=== PATIENT | female | born 1965 | race Caucasian/White ===

== ENCOUNTER → 2016-03-25 | Outpatient (CLI) | payer MEDICARE, MEDICAID | LOC: RAD 08:36 | PROVIDERS: ATTEND Surgery | DX: R10.32 Left lower quadrant pain (principal); K59.00 Constipation, unspecified | CPT/HCPCS: 74177; 82565 ==

== ENCOUNTER 2016-09-16 07:55 | Emergency (ER) | payer MEDICARE, MEDICAID ==
[2016-09-16 08:49] LABS: APPEARANCE,URINE CLEAR; BILIRUBIN,URINE NEGATIVE (NEGATIVE); GLUCOSE, URINE NEGATIVE (NEGATIVE); KETONES,URINE NEGATIVE (NEGATIVE); LEUKOCYTE ESTERASE,URINE NEGATIVE (NEGATIVE); NITRITE,URINE NEGATIVE (NEGATIVE); PROTEIN,URINE NEGATIVE (NEGATIVE); URINE SPECIFIC GRAVITY 1.013; UROBILINOGEN,URINE NEGATIVE mg/dL (<2.0)
[2016-09-16 09:12] LABS: ABSOLUTE EOSINOPHILS # (AUTO) 0.1 10^3/uL (0.0-0.6); ABSOLUTE LYMPHOCYTES (AUTO) 1.5 10^3/uL (0.5-4.7); ABSOLUTE MONOCYTES (AUTO) 0.3 10^3/uL (0.1-1.4); ABSOLUTE NEUT (AUTO) 1.9 10^3/uL (1.7-8.2); BASOPHILS % (AUTO) 1.2 % (0-2); EOSINOPHILS % (AUTO) 2.8 % (0-6); HEMATOCRIT 36.1 % (36.0-47.0); HEMOGLOBIN 11.6 g/dL (12.0-15.5); HGB HCT DIFFERENCE -1.3; LYMPHOCYTES % (AUTO) 39.9 % (13-45); MEAN CORPUSCULAR HGB CONC 32.1 g/dL (32.0-36.0); MEAN CORPUSCULAR VOLUME 81 fl (80-97); MONOCYTES % (AUTO) 7.2 % (3-13); RED BLOOD COUNT 4.44 10^6/uL (3.72-5.28); RED CELL DISTRIBUTION WIDTH 15.3 % (11.5-14.0); SEGMENTED NEUTROPHILS % (AUTO) 48.9 % (42-78); WHITE BLOOD COUNT 3.8 10^3/uL (4.0-10.5)
--- NOTE | 2016-09-16 09:21 | ER Document Report ---
ED General - General Chief Complaint: Abdominal Pain Stated Complaint: ABDOMINAL PAIN Time Seen by Provider: 09/16/16 08:27 Mode of Arrival: Ambulatory Information source: Patient Notes: 50-year-old female presents with complaints of one-week duration of pain in the umbilicus. Patient denies any fevers or chills admits to vomiting one time yesterday. Patient notes the pain has not radiated anywhere. Patient has a history of gastric bypass and gets constipated often TRAVEL OUTSIDE OF THE [place] IN LAST 30 DAYS: No - HPI Onset: Last week Onset/Duration: Persistent Quality of pain: Sharp Severity: Mild Pain Level: 1 Associated symptoms: Other Exacerbated by: Denies Relieved by: Denies Similar symptoms previously: Yes Recently seen / treated by doctor: Yes - Related Data Allergies/Adverse Reactions: ranitidine HCl [From Zantac] Allergy (Severe, Verified 09/16/16 08:03) TONGUE/LIP SWELLING sumatriptan [From Imitrex] Allergy (Severe, Verified 09/16/16 08:03) TONGUE SWELLING sumatriptan succinate [From Imitrex] Allergy (Severe, Verified 09/16/16 08:03) TONGUE SWELLING sulfamethoxazole [From Bactrim] Allergy (Intermediate, Verified 09/16/16 08:03) RASH trimethoprim [From Bactrim] Allergy (Intermediate, Verified 09/16/16 08:03) RASH vancomycin Allergy (Intermediate, Verified 09/16/16 08:03) RASH Tetracyclines Adverse Reaction (Mild, Verified 09/16/16 08:03) RASH Past Medical History - Social History Smoking Status: Never Smoker Cigarette use (# per day): No Chew tobacco use (# tins/day): No Smoking Education Provided: No Family History: Reviewed & Not Pertinent Patient has suicidal ideation: No Patient has homicidal ideation: No - Past Medical History Cardiac Medical History: Denies: Hx Coronary Artery Disease, Hx Heart Attack, Hx Hypertension Pulmonary Medical History: Reports: Hx Bronchitis Denies: Hx Asthma, Hx COPD, Hx Pneumonia Neurological Medical History: Denies: Hx Cerebrovascular Accident, Hx Seizures Endocrine Medical History: Reports: Hx Diabetes Mellitus Type 2 Renal/ Medical History: Denies: Hx Peritoneal Dialysis Musculoskeltal Medical History: Reports Hx Arthritis - osteo, Reports Hx Fibromyalgia Psychiatric Medical History: Reports: Hx Bipolar Disorder Past Surgical History: Reports: Hx Orthopedic Surgery - neck, back, shoulder - Immunizations Hx Diphtheria, Pertussis, Tetanus Vaccination: Yes Review of Systems - Review of Systems Notes: REVIEW OF SYSTEMS: CONSTITUTIONAL : Denies fever, chills, or sweats. Denies recent illness. EENT: Denies eye, ear, throat, or mouth pain or symptoms. Denies nasal or sinus congestion or discharge. Denies throat, tongue, or mouth swelling or difficulty swallowing. CARDIOVASCULAR: Denies chest pain. Denies palpitations or racing or irregular heart beat. Denies ankle edema. RESPIRATORY: Denies cough, cold, or chest congestion. Denies shortness of breath, difficulty breathing, or wheezing. GASTROINTESTINAL: Pain in hte umbilicus GENITOURINARY: Denies difficulty urinating, painful urination, burning, frequency, blood in urine, or discharge. FEMALE GENITOURINARY: Denies vaginal bleeding, heavy or abnormal periods, irregular periods. Denies vaginal discharge or odor. MUSCULOSKELETAL: Denies back or neck pain or stiffness. Denies joint pain or swelling. SKIN: Denies rash, lesions or sores. HEMATOLOGIC : Denies easy bruising or bleeding. LYMPHATIC: Denies swollen, enlarged glands. NEUROLOGICAL: Denies confusion or altered mental status. Denies passing out or loss of consciousness. Denies dizziness or lightheadedness. Denies headache. Denies weakness or paralysis or loss of use of either side. Denies problems with gait or speech. Denies sensory loss, numbness, or tingling. Denies seizures. PSYCHIATRIC: Denies anxiety or stress. Denies depression, suicidal ideation, or homicidal ideation. ALL OTHER SYSTEMS REVIEWED AND NEGATIVE. PHYSICAL EXAMINATION: GENERAL: Well-appearing, well-nourished and in no acute distress. HEAD: Atraumatic, normocephalic. EYES: Pupils equal round and reactive to light, extraocular movements intact, conjunctiva are normal. ENT: Nares patent, oropharynx clear without exudates. Moist mucous membranes. NECK: Normal range of motion, supple without lymphadenopathy LUNGS: Breath sounds clear to auscultation bilaterally and equal. No wheezes rales or rhonchi. HEART: Regular rate and rhythm without murmurs ABDOMEN: Soft, nontender, nondistended abdomen. No guarding, no rebound. No masses appreciated. Female : deferred Musculoskeletal: Normal range of motion, no pitting or edema. No cyanosis. NEUROLOGICAL: Cranial nerves grossly intact. Normal speech, normal gait. Normal sensory, motor exams PSYCH: Normal mood, normal affect. SKIN: Warm, Dry, normal turgor, no rashes or lesions noted. Dictation was performed using [employer] voice recognition software Physical Exam - Vital signs Vitals: Temp Pulse Resp BP Pulse Ox 97.7 F 76 16 112/62 100 09/16/16 08:00 09/16/16 08:00 09/16/16 08:00 09/16/16 08:00 09/16/16 08:00 Course - Re-evaluation Re-evalutation: 09/16/16 09:27 Patient overall looks well, I have low suspicion for appendicitis however lab work is pending at this 09/16/16 11:[address] noted no significant abnormality except for fecal matter, patient admits that she is always constipated, I will start her on medications otherwise she is stable for discharge After performing a Medical Screening Examination, I estimate there is LOW risk for ACUTE APPENDICITIS, BOWEL OBSTRUCTION, ACUTE CHOLECYSTITIS, PERFORATED DIVERTICULITIS, INCARCERATED HERNIA, PANCREATITIS, PELVIC INFLAMMATORY DISEASE, PERFORATED ULCER, ECTOPIC , or TUBO-OVARIAN ABSCESS, thus I consider the discharge disposition reasonable. Also, there is no evidence or peritonitis , sepsis, or toxicity. I have reevaluated this patient multiple times and no significant life threatening changes are noted. The patient and I have discussed the diagnosis and risks, and we agree with discharging home with close follow-up with the understanding that symptoms and presentations can change. We also discussed returning to the Emergency Department immediately if new or worsening symptoms occur. We have discussed the symptoms which are most concerning (e.g., bloody stool, fever, changing or worsening pain, vomiting) that necessitate immediate return. - Vital Signs Vital signs: Temp Pulse Resp BP Pulse Ox 97.7 F 76 16 112/62 100 09/16/16 08:00 09/16/16 08:00 09/16/16 08:00 09/16/16 08:00 09/16/16 08:00 - Laboratory Result Diagrams: 09/16/16 08:59 09/16/16 08:59 Laboratory results interpreted by me: 09/16/16 09/16/16 08:59 08:59 WBC 3.8 L Hgb 11.6 L MCH 26.0 L RDW 15.3 H Chloride 108 H - Diagnostic Test Radiology reviewed: Image reviewed, Reports reviewed - Fecal matter noted Discharge - Discharge Clinical Impression: Constipation Qualifiers: Constipation type: unspecified constipation type Qualified Code(s): K59.00 - Constipation, unspecified Abdominal pain Qualifiers: Abdominal location: generalized Qualified Code(s): R10.84 - Generalized abdominal pain Condition: Stable Disposition: HOME, SELF-CARE Instructions: Abdominal Pain ([facility]) Additional Instructions: Follow up with your physician tomorrow for further care or return to the ED IMMEDIATELY if symptoms worsen or new concerns occur. If you cannot afford to follow up with your primary care physician a list of low cost clinics have been provided at the end of your discharge papers as well. Prescriptions: Dicyclomine HCl [Bentyl 20 mg Tablet] 20 mg PO QID #40 tablet Metoclopramide HCl [Reglan 10 mg Tablet] 1 - 2 tab PO ASDIR PRN #25 tablet PRN Reason: Peg 3350/Na Sulf,Bicarb,Cl/KCl [Golytely Solution 4000 ml] 4,000 ml PO DAILY #1 bottle
[2016-09-16 09:39] LABS: ALANINE AMINOTRANSFERASE 25 U/L (9-52); ALBUMIN 3.9 g/dL (3.5-5.0); ALKALINE PHOSPHATASE 71 U/L (38-126); ANION GAP 8 (5-19); ASPARTATE AMINO TRANSFERASE 29 U/L (14-36); BILIRUBIN,DIRECT 0.3 mg/dL (0.0-0.4); BILIRUBIN,TOTAL 0.4 mg/dL (0.2-1.3); BLOOD UREA NITROGEN 16 mg/dL (7-20); CALCIUM 8.8 mg/dL (8.4-10.2); CARBON DIOXIDE 26 mmol/L (22-30); CHLORIDE 108 mmol/L (98-107); CREATININE RESULT 0.81 mg/dL (0.52-1.25); GLUCOSE 83 mg/dL (75-110); LIPASE 74.1 U/L (23-300); POTASSIUM 4.1 mmol/L (3.6-5.0); SODIUM 142.1 mmol/L (137-145)
--- NOTE | 2016-09-16 11:32 | RADIOLOGY REPORT (SQ) ---
EXAM DESCRIPTION: CT ABD/PELVIS WITH IV ONLY COMPLETED DATE/TIME: 09/16/2016 10:11 am REASON FOR STUDY: RLQ pain COMPARISON: 03/25/2016 TECHNIQUE: CT scan of the abdomen and pelvis performed using helical scanning technique with dynamic intravenous contrast injection. No oral contrast. Images reviewed with lung, soft tissue, and bone windows. Reconstructed coronal and sagittal MPR images reviewed. Delayed images for evaluation of the urinary system also acquired. All images stored on PACS. All CT scanners at this facility use dose modulation, iterative reconstruction, and/or weight based d osing when appropriate to reduce radiation dose to as low as reasonably achievable (ALARA). [facility]: Dose Right [facility]: CareDose [facility]: Dose Right [facility]: Teradose 4D [facility]: Maxta CONTRAST TYPE AND DOSE: contrast/concentration: Isovue 370.00 mg/ml; Total Contrast Delivered: 79.0 ml; Total Saline Delivered: 68.0 ml 79 cc Isovue intravenously RENAL FUNCTION: Creatinine 0.81 RADIATION DOSE: Up-to-date CT equipment and radiation dose reduction techniques were employed. CTDIv ol: 6.5 - 8.9 mGy. DLP: 851 mGy-cm.. LIMITATIONS: None. FINDINGS: LOWER CHEST: No significant findings. No nodules or infiltrates. LIVER: Normal size. No masses. No dilated ducts. SPLEEN: Normal size. No focal lesions. PANCREAS: No masses. No significant calcifications. No adjacent inflammation or peripancreatic fluid collections. Pancreatic duct not dilated. GALLBLADDER: Surgical clips, post cholecystectomy. ADRENAL GLANDS: No significant masses or asymmetry. RIGHT KIDNEY AND URETER: No solid masses. No significant calcification. No hydronephrosis or hydroure ter. LEFT KIDNEY AND URETER: No solid masses. No significant calcification. No hydronephrosis or hydrouret er. AORTA AND VESSELS: No AAA. RETROPERITONEUM: No retroperitoneal adenopathy, hemorrhage or masses. BOWEL AND PERITONEAL CAVITY: Operative change of the stomach. Increase air noted of the colon. Nono bstructive appearance. Mild small bowel distention. APPENDIX: Limited visualization unremarkable PELVIS: No mass or free fluid. Normal bladder. ABDOMINAL WALL: No masses. No hernias. BONES: Operative change L4-5. OTHER: No other significant finding. IMPRESSION: Operative changes, post gastric bypass, cholecystectomy, and hysterectomy. Nonobstructive bowel pattern, with increase air and fecal material of the colon. TECHNICAL DOCUMENTATION: JOB ID: [id number] Quality ID # [id number]: Final reports with documentation of one or more dose reduction techniques (e.g., Au tomated exposure control, adjustment of the mA and/or kV according to patient size, use of iterative reconstruction technique) 2010 [employer]- All Rights Reserved
[2016-09-16] MEDS ORDERED: DICYCLOMINE HCL INJ 20 MG/2 ML AMPULE IM ONE (11:57)
[2016-09-16 12:14] VITALS: BP 110/60
== END 2016-09-16 12:15 | disposition home or self-care (01) ==
LOC: ER 07:55
DX: K59.00 Constipation, unspecified (principal); R10.84 Generalized abdominal pain; R11.10 Vomiting, unspecified; E11.9 Type 2 diabetes mellitus without complications; Z98.84 Bariatric surgery status; Z88.3 Allergy status to other anti-infective agents
CPT/HCPCS: 99284; 96372; 36415; 83690; 85025; 80053; 81001; 74177; J0500

== ENCOUNTER 2016-11-17 09:26 | Emergency (ER) | payer MEDICARE, MEDICAID ==
[2016-11-17] MEDS ORDERED: ACETAMINOPHEN 325 MG TABLET PO ONE (10:04)
--- NOTE | 2016-11-17 10:06 | ER Document Report ---
HPI - HPI Patient complains to provider of: Right forearm injury Onset: Other - 1 month ago, worse since yesterday Onset/Duration: Persistent Quality of pain: Achy Pain Level: 4 Context: Patient states that she fell 1 month ago after having a syncopal episode injuring her right arm. Patient is complaining of persistent pain since the fall. Patient states that yesterday her dog jumped up on her arm causing increased pain. Associated Symptoms: Other - Right forearm tenderness Exacerbated by: Movement Relieved by: Denies Similar symptoms previously: No Recently seen / treated by doctor: No - ROS ROS below otherwise negative: Yes Systems Reviewed and Negative: Yes All other systems reviewed and negative - CONSTITUTIONAL Constitutional: DENIES: Fever - NEURO Neurology: DENIES: Weakness - CARDIOVASCULAR Cardiovascular: DENIES: Chest pain - MUSCULOSKELETAL Musculoskeletal: REPORTS: Extremity pain - DERM Skin Color: Ecchymosis Skin Problems: None Past Medical History - General Information source: Patient - Social History Smoking Status: Never Smoker Chew tobacco use (# tins/day): No Frequency of alcohol use: None Drug Abuse: None Occupation: None Family History: Reviewed & Not Pertinent Patient has suicidal ideation: No Patient has homicidal ideation: No - Past Medical History Cardiac Medical History: Reports: Other - Syncope Denies: Hx Coronary Artery Disease, Hx Heart Attack, Hx Hypertension Pulmonary Medical History: Reports: Hx Bronchitis Denies: Hx Asthma, Hx COPD, Hx Pneumonia Neurological Medical History: Denies: Hx Cerebrovascular Accident, Hx Seizures Endocrine Medical History: Reports: Hx Diabetes Mellitus Type 2 Renal/ Medical History: Denies: Hx Peritoneal Dialysis Musculoskeltal Medical History: Reports Hx Arthritis - osteo, Reports Hx Fibromyalgia Psychiatric Medical History: Reports: Hx Bipolar Disorder Past Surgical History: Reports: Hx Abdominal Surgery - gastric bypass, Hx Cholecystectomy, Hx Orthopedic Surgery - neck, back, shoulder - Immunizations Hx Diphtheria, Pertussis, Tetanus Vaccination: Yes Vertical Provider Document - CONSTITUTIONAL Agree With Documented VS: Yes Exam Limitations: No Limitations General Appearance: WD/WN, No Apparent Distress - INFECTION CONTROL TRAVEL OUTSIDE OF THE [place] IN LAST 30 DAYS: No - HEENT HEENT: Atraumatic, Normocephalic - NECK Neck: Normal Inspection, Supple - RESPIRATORY Respiratory: No Respiratory Distress O2 Sat by Pulse Oximetry: 99 - CARDIOVASCULAR Pulses: Normal: Radial - MUSCULOSKELETAL/EXTREMETIES Musculoskeletal/Extremeties: MAEW, Tender - Proximal right forearm tenderness with overlying area of ecchymosis, no deformity, no joint tenderness, No Edema, Eccymosis - NEURO Level of Consciousness: Awake, Alert, Appropriate Motor/Sensory: No Motor Deficit - DERM Integumentary: Warm, Dry, No Rash Course - Vital Signs Vital signs: Temp Pulse Resp BP Pulse Ox 97.8 F 76 14 113/73 99 11/17/16 09:11/17/16 09:11/17/16 09:11/17/16 09:11/17/16 09:29 - Diagnostic Test Radiology reviewed: Pending, Image reviewed Discharge - Discharge Clinical Impression: Right forearm pain Arm contusion Qualifiers: Encounter type: initial encounter Laterality: right Qualified Code(s): S40.021A - Contusion of right upper arm, initial encounter Condition: Stable Disposition: HOME, SELF-CARE Instructions: Anti-Inflammatory Medication ([facility]), Contusion ([facility]), Ice & Elevation ([facility]) Additional Instructions: Return immediately for any new or worsening symptoms Followup with your primary care provider, call tomorrow to make a followup appointment You may use topical lidocaine patches [id number] as directed Prescriptions: Naproxen [Naprosyn 250 Nmg Tablet] 1 tab PO BID #14 tablet Referrals: [facility] ([facility]) [Provider Group] - Follow up tomorrow
[2016-11-17] MEDS ORDERED: LIDOCAINE 5% (700 MG) TRANSDERMAL ADH..PATCH TP ONE (10:47)
--- NOTE | 2016-11-17 11:03 | RADIOLOGY REPORT (SQ) ---
EXAM DESCRIPTION: FOREARM RIGHT COMPLETED DATE/TIME: 11/17/2016 10:30 am REASON FOR STUDY: proximal FA pain, hx fall, dog jumped on arm COMPARISON: None. NUMBER OF VIEWS: Two views. TECHNIQUE: Two radiographic images acquired of the right forearm, including elbow and wrist in at le ast one projection. LIMITATIONS: None. FINDINGS: MINERALIZATION: Normal. BONES: No acute fracture. No worrisome bone lesions. SOFT TISSUES: No obvious swelling or foreign body. OTHER: No other significant finding. IMPRESSION: NEGATIVE STUDY OF THE RIGHT FOREARM. NO RADIOGRAPHIC EVIDENCE OF ACUTE INJURY. TECHNICAL DOCUMENTATION: JOB ID: [id number] [employer]- All Rights Reserved
[2016-11-17 11:09] VITALS: BP 121/69
== END 2016-11-17 11:09 | disposition home or self-care (01) ==
LOC: ER 09:26
DX: S40.021A Contusion of right upper arm, initial encounter (principal); M79.631 Pain in right forearm; W22.8XXA Striking against or struck by other objects, initial encounter
CPT/HCPCS: 99283; 36415; 82306; 82728; 83540; 83550; 73090; A9270

== ENCOUNTER 2017-02-20 08:58 | Emergency (ER) | payer MEDICARE, MEDICAID ==
--- NOTE | 2017-02-20 09:38 | ER Document Report ---
ED General - General Chief Complaint: Head Injury Stated Complaint: POSSIBLE SYNCOPAL EPISODE HEAD INJURY Time Seen by Provider: 02/20/17 09:25 Information source: Patient Notes: 51-year-old female who presents today with a syncopal witnessed episode 2 days ago. She hit her head on the concrete when she fell. She also caught herself with her right arm on a coffee table. Patient states initially she was having some blurry vision. She denies any blurry vision at this time. She denies being on any blood thinning medications. She denies any seizure activity. Patient states since her gastric bypass surgery 3 years ago she has multiple syncopal episodes. She states up to 3 times per month. She states that she has no incontinence and these episodes that have been witnessed have shown no seizure activity. She does see a cyber threat analyst and had a Holter monitor and was told that there were no obvious dysrhythmias. She was put on a blood pressure medication 6 months ago to deal with these issues. Patient states before this current episode she felt "hot and flushed" and denies any chest pain or shortness of breath. TRAVEL OUTSIDE OF THE [place] IN LAST 30 DAYS: No - HPI Onset: Other - See above Onset/Duration: Sudden Quality of pain: Achy Severity: Mild Pain Level: 1 Associated symptoms: Other - See above Exacerbated by: Denies Relieved by: Denies Similar symptoms previously: Yes Recently seen / treated by doctor: Yes - Related Data Allergies/Adverse Reactions: ranitidine HCl [From Zantac] Allergy (Severe, Verified 02/20/17 08:59) TONGUE/LIP SWELLING sumatriptan [From Imitrex] Allergy (Severe, Verified 02/20/17 08:59) TONGUE SWELLING sumatriptan succinate [From Imitrex] Allergy (Severe, Verified 02/20/17 08:59) TONGUE SWELLING sulfamethoxazole [From Bactrim] Allergy (Intermediate, Verified 02/20/17 08:59) RASH trimethoprim [From Bactrim] Allergy (Intermediate, Verified 02/20/17 08:59) RASH vancomycin Allergy (Intermediate, Verified 02/20/17 08:59) RASH Tetracyclines Adverse Reaction (Mild, Verified 02/20/17 08:59) RASH Past Medical History - General Information source: Patient - Social History Smoking Status: Unknown if Ever Smoked Cigarette use (# per day): No Chew tobacco use (# tins/day): No Smoking Education Provided: No Frequency of alcohol use: None Drug Abuse: None Family History: Reviewed & Not Pertinent - Past Medical History Cardiac Medical History: Denies: Hx Coronary Artery Disease, Hx Heart Attack, Hx Hypertension Pulmonary Medical History: Reports: Hx Bronchitis Denies: Hx Asthma, Hx COPD, Hx Pneumonia Neurological Medical History: Denies: Hx Cerebrovascular Accident, Hx Seizures Endocrine Medical History: Reports: Hx Diabetes Mellitus Type 2 Renal/ Medical History: Denies: Hx Peritoneal Dialysis Musculoskeltal Medical History: Reports Hx Arthritis - osteo, Reports Hx Fibromyalgia Psychiatric Medical History: Reports: Hx Bipolar Disorder Past Surgical History: Reports: Hx Abdominal Surgery - gastric bypass, Hx Cholecystectomy, Hx Orthopedic Surgery - neck, back, shoulder - Immunizations Hx Diphtheria, Pertussis, Tetanus Vaccination: Yes Review of Systems - Review of Systems Constitutional: denies: Fever EENT: denies: Eye discharge, Double vision, Ear pain, Ear discharge, Nose pain, Nose discharge Cardiovascular: denies: Chest pain, Palpitations, Dyspnea Respiratory: denies: Short of breath Gastrointestinal: denies: Vomiting Genitourinary: denies: Dysuria Musculoskeletal: denies: Leg swelling Skin: Other - no hives. denies: Rash Neurological/Psychological: Other - no slurred speech -: Yes All other systems reviewed and negative Physical Exam - Vital signs Vitals: Temp Pulse Resp BP Pulse Ox 98.2 F 64 16 122/61 100 02/20/17 09:06 02/20/17 09:06 02/20/17 09:06 02/20/17 09:06 02/20/17 09:06 Notes: Reviewed vital signs and nursing note as charted by RN. CONSTITUTIONAL: Alert and oriented and responds appropriately to questions. Well -appearing; well-nourished HEAD: Normocephalic; atraumatic EYES: PERRL; full extraocular range of motion ENT: Normal nose; no rhinorrhea; moist mucous membranes; pharynx without lesions noted NECK: Supple without meningismus; no carotid bruits present; non-tender; no cervical lymphadenopathy, no masses CARD: Regular rate and rhythm; no murmurs RESP: Normal chest excursion without splinting or tachypnea; breath sounds clear and equal bilaterally ABD/GI: Normal bowel sounds; non-distended; soft, non-tender BACK: The back appears normal and is non-tender to palpation EXT: Normal ROM in all joints; non-tender to palpation; no cyanosis, no effusions, no edema SKIN: No acute lesions noted NEURO: Moves all extremities equally; Motor and sensory function intact PSYCH: The patient's mood and manner are appropriate. Grooming and personal hygiene are appropriate. Course - Re-evaluation Re-evalutation: 02/20/17 09:36 Given the above history and physical examination, we will place the patient on the monitor, obtain orthostatics and EKG, as well as a CT scan of the head and cervical spine. Patient has full range of motion of the right arm with no obvious bruising or deformity noted. Patient currently denies any blurry vision. Patient has had no flashes of lights or focal segment vision loss. Given the above history and physical examination, I do believe pulmonary embolism and aortic dissection to be extremely unlikely. Patient denies any blurry or double vision at this time. Patient's cranial nerves II through XII are intact. She has 5 out of 5 bilateral upper and lower extremity strength with sensation intact light touch. 02/20/17 10:30 Heart rate 56, normal sinus rhythm, right bundle branch block, no obvious ST elevation or depression. No old EKG available at this time. 02/20/17 11:39 Orthostatics appear unremarkable. Visual acuity shows right eye vision 20/30. Patient still denies any blurry vision at this time. Labs as recorded. CAT scan of the head and cervical spine shows no acute abnormalities. 02/20/17 13:06 Troponin as recorded. Patient has not had any chest pain. Patient's episode was on Monday. Orthostatics unremarkable. Patient denies any pain at this time. Patient will be discharged home at this time with strict return precautions. - Vital Signs Vital signs: Temp Pulse Resp BP Pulse Ox 98.2 F 55 L 16 119/69 100 02/20/17 09:06 02/20/17 10:05 02/20/17 09:06 02/20/17 10:05 02/20/17 09:06 - Laboratory Result Diagrams: 02/20/17 09:55 02/20/17 11:07 Laboratory results interpreted by me: 02/20/17 02/20/17 09:55 11:07 Hgb 11.4 L Hct 34.0 L RDW 15.1 H Sodium 146.3 H Chloride 109 H Discharge - Discharge Clinical Impression: Syncope Qualifiers: Syncope type: unspecified Qualified Code(s): R55 - Syncope and collapse Condition: Good Disposition: HOME, SELF-CARE Additional Instructions: Please make sure that you follow-up with your primary care physician and cyber threat analyst. Please come back immediately with any chest pain, weakness or numbness, return of blurry vision, or any other acute problems.
--- NOTE | 2017-02-20 09:51 | RADIOLOGY REPORT (SQ) ---
EXAM DESCRIPTION: CT HEAD WITHOUT COMPLETED DATE/TIME: 02/20/2017 9:43 am REASON FOR STUDY: 6, fall COMPARISON: None. TECHNIQUE: Axial images acquired through the brain without intravenous contrast. Images reviewed wi th bone, brain and subdural windows. Images stored on PACS. All CT scanners at this facility use dose modulation, iterative reconstruction, and/or weight based d osing when appropriate to reduce radiation dose to as low as reasonably achievable (ALARA). [facility]: Dose Right [facility]: CareDose [facility]: Dose Right [facility]: Teradose 4D [facility]: [employer] RADIATION DOSE: 64.61 mGy. LIMITATIONS: None. FINDINGS: VENTRICLES: Normal size and contour. CEREBRUM: No masses. No hemorrhage. No midline shift. No evidence for acute infarction. Normal gra y/white matter differentiation. No areas of low density in the white matter. CEREBELLUM: No masses. No hemorrhage. No alteration of density. No evidence for acute infarction. EXTRAAXIAL SPACES: No fluid collections. No masses. ORBITS AND GLOBE: No intra- or extraconal masses. Normal contour of globe without masses. CALVARIUM: No fracture. PARANASAL SINUSES: No fluid or mucosal thickening. SOFT TISSUES: No mass or hematoma. OTHER: No other significant finding. IMPRESSION: NORMAL BRAIN CT WITHOUT CONTRAST. EVIDENCE OF ACUTE STROKE: NO. COMMENT: Quality ID # [id number]: Final reports with documentation of one or more dose reduction techniques (e.g., Automated exposure control, adjustment of the mA and/or kV according to patient size, use of iterative reconstruction technique) TECHNICAL DOCUMENTATION: JOB ID: [id number] [employer]- All Rights Reserved
--- NOTE | 2017-02-20 09:54 | RADIOLOGY REPORT (SQ) ---
EXAM DESCRIPTION: CT CERVICAL SPINE WITHOUT COMPLETED DATE/TIME: 02/20/2017 9:43 am REASON FOR STUDY: 7, fall COMPARISON: None. TECHNIQUE: Axial images acquired through the cervical spine without intravenous contrast. Images re viewed with lung, soft tissue and bone windows. Reconstructed coronal and sagittal MPR images review ed. Images stored on PACS. All CT scanners at this facility use dose modulation, iterative reconstruction, and/or weight based d osing when appropriate to reduce radiation dose to as low as reasonably achievable (ALARA). [facility]: Dose Right [facility]: CareDose [facility]: Dose Right [facility]: Teradose 4D [facility]: Indelsul RADIATION DOSE: 19.53 mGy. LIMITATIONS: None. FINDINGS: ALIGNMENT: Reversal of lordotic curve. MINERALIZATION: Normal. VERTEBRAL BODIES: No fractures or dislocation. DISCS: Multilevel disc space narrowing with osteophytes. FACETS, LATERAL MASSES, POSTERIOR ELEMENTS: Facet arthropathy. No fractures. No dislocation. No ac yuhaaviatam findings. HARDWARE: Anterior fusion C4-5 and C5-6. VISUALIZED RIBS: No fractures. LUNG APICES AND SOFT TISSUES: No significant or acute findings. OTHER: No other significant finding. IMPRESSION: No acute findings. TECHNICAL DOCUMENTATION: JOB ID: [id number] Quality ID # [id number]: Final reports with documentation of one or more dose reduction techniques (e.g., Au tomated exposure control, adjustment of the mA and/or kV according to patient size, use of iterative reconstruction technique) 2010 [employer]- All Rights Reserved
[2017-02-20 10:10] LABS: ABSOLUTE BASOPHILS # (AUTO) 0.1 10^3/uL (0.0-0.2); ABSOLUTE EOSINOPHILS # (AUTO) 0.1 10^3/uL (0.0-0.6); ABSOLUTE LYMPHOCYTES (AUTO) 1.6 10^3/uL (0.5-4.7); ABSOLUTE MONOCYTES (AUTO) 0.4 10^3/uL (0.1-1.4); ABSOLUTE NEUT (AUTO) 2.3 10^3/uL (1.7-8.2); BASOPHILS % (AUTO) 1.4 % (0-2); EOSINOPHILS % (AUTO) 2.4 % (0-6); HEMOGLOBIN 11.4 g/dL (12.0-15.5); HGB HCT DIFFERENCE 0.2; LYMPHOCYTES % (AUTO) 35.1 % (13-45); MEAN CORPUSCULAR HGB CONC 33.6 g/dL (32.0-36.0); MEAN CORPUSCULAR VOLUME 80 fl (80-97); MONOCYTES % (AUTO) 8.8 % (3-13); RED BLOOD COUNT 4.23 10^6/uL (3.72-5.28); RED CELL DISTRIBUTION WIDTH 15.1 % (11.5-14.0); SEGMENTED NEUTROPHILS % (AUTO) 52.3 % (42-78); WHITE BLOOD COUNT 4.4 10^3/uL (4.0-10.5)
[2017-02-20] MEDS ORDERED: ACETAMINOPHEN 325 MG TABLET PO ONE (11:02)
[2017-02-20 12:33] LABS: ANION GAP 10 (5-19); BLOOD UREA NITROGEN 18 mg/dL (7-20); CALCIUM 9.2 mg/dL (8.4-10.2); CARBON DIOXIDE 27 mmol/L (22-30); CHLORIDE 109 mmol/L (98-107); CREATININE RESULT 0.79 mg/dL (0.52-1.25); GLUCOSE 90 mg/dL (75-110); POTASSIUM 4.1 mmol/L (3.6-5.0); SODIUM 146.3 mmol/L (137-145)
--- NOTE | 2017-02-20 13:33 | EKG REPORT ---
SEVERITY:- ABNORMAL ECG - SINUS RHYTHM RIGHT BUNDLE BRANCH BLOCK : Confirmed by: Marina Neely 20-Feb-2017 13:33:11
[2017-02-20 14:03] VITALS: BP 118/74
== END 2017-02-20 14:03 | disposition home or self-care (01) ==
LOC: ER 08:58
DX: R55 Syncope and collapse (principal); W18.30XA Fall on same level, unspecified, initial encounter; E11.9 Type 2 diabetes mellitus without complications; Z98.84 Bariatric surgery status; Z88.3 Allergy status to other anti-infective agents; Z90.49 Acquired absence of other specified parts of digestive tract
CPT/HCPCS: 93005; 99285; 36415; 85025; 80048; 84484; 70450; 72125; 93010; A9270

== ENCOUNTER 2017-04-11 11:41 | Emergency (ER) | payer MEDICARE, MEDICAID ==
[2017-04-11] MEDS ORDERED: ONDANSETRON HCL INJ/PF 4 MG/2 ML SDV IV ONE (13:51)
[2017-04-11] MEDS ORDERED: NORMAL SALINE 1000 ML 1,000 ML IV ONE (13:51)
--- NOTE | 2017-04-11 13:59 | ER Document Report ---
ED Medical Screen (RME) - General Chief Complaint: Flu Symptoms Stated Complaint: BODY ACHES Time Seen by Provider: 04/11/17 13:44 Mode of Arrival: Ambulatory Information source: Patient Notes: Patient is a 51 year old female presenting to the emergency department complaining of flu like symptoms onset 4 days ago. PAtient states she has been dry heaving and has had multiple episodes of diarrhea since. Patient states she is unable to vomit due to having Gastric Bypass many years ago. Patient also complains of decreased foul smelling urination, chills, and headaches. Patient denies taking any antibiotics or sore throat. I have greeted and performed a rapid initial assessment of this patient. A comprehensive ED assessment and evaluation of the patient, analysis of test results and completion of the medical decision making process will be conducted by additional ED providers. TRAVEL OUTSIDE OF THE [place] IN LAST 30 DAYS: No - Related Data Allergies/Adverse Reactions: ranitidine HCl [From Zantac] Allergy (Severe, Verified 02/20/17 08:59) TONGUE/LIP SWELLING sumatriptan [From Imitrex] Allergy (Severe, Verified 02/20/17 08:59) TONGUE SWELLING sumatriptan succinate [From Imitrex] Allergy (Severe, Verified 02/20/17 08:59) TONGUE SWELLING sulfamethoxazole [From Bactrim] Allergy (Intermediate, Verified 02/20/17 08:59) RASH trimethoprim [From Bactrim] Allergy (Intermediate, Verified 02/20/17 08:59) RASH vancomycin Allergy (Intermediate, Verified 02/20/17 08:59) RASH amoxicillin [From Augmentin] Allergy (Verified 04/11/17 11:42) clavulanic acid [From Augmentin] Allergy (Verified 04/11/17 11:42) Tetracyclines Adverse Reaction (Mild, Verified 02/20/17 08:59) RASH Past Medical History - Social History Chew tobacco use (# tins/day): No Frequency of alcohol use: None Drug Abuse: None - Past Medical History Cardiac Medical History: Denies: Hx Coronary Artery Disease, Hx Heart Attack, Hx Hypertension Pulmonary Medical History: Reports: Hx Bronchitis Denies: Hx Asthma, Hx COPD, Hx Pneumonia Neurological Medical History: Denies: Hx Cerebrovascular Accident, Hx Seizures Endocrine Medical History: Reports: Hx Diabetes Mellitus Type 2 Renal/ Medical History: Denies: Hx Peritoneal Dialysis Musculoskeltal Medical History: Reports Hx Arthritis - osteo, Reports Hx Fibromyalgia Psychiatric Medical History: Reports: Hx Bipolar Disorder Past Surgical History: Reports: Hx Abdominal Surgery - gastric bypass, Hx Cholecystectomy, Hx Orthopedic Surgery - neck, back, shoulder - Immunizations Hx Diphtheria, Pertussis, Tetanus Vaccination: Yes Physical Exam - Vital signs Vitals: Temp Pulse Resp BP Pulse Ox 98.7 F 63 20 123/62 100 04/11/17 11:45 04/11/17 11:45 04/11/17 11:45 04/11/17 11:45 04/11/17 11:45 - Notes Notes: GENERAL: Alert, interacts well. No acute distress. HEAD: Normocephalic, atraumatic. EYES: Pupils equal, round, and reactive to light. Extraocular movements intact. ENT: Oral mucosa moist, tongue midline. NECK: Full range of motion. Supple. Trachea midline. LUNGS: Clear to auscultation bilaterally, no wheezes, rales, or rhonchi. No respiratory distress. HEART: Regular rate and rhythm. No murmurs, gallops, or rubs. ABDOMEN: Soft, non-tender. Non-distended. Bowel sounds present in all 4 quadrants. EXTREMITIES: Moves all 4 extremities spontaneously. NEUROLOGICAL: Alert and oriented x3. Normal speech. PSYCH: Normal affect, normal mood. SKIN: Warm, dry, normal turgor. No rashes or lesions noted. Course - Vital Signs Vital signs: Temp Pulse Resp BP Pulse Ox 98.7 F 63 20 123/62 100 04/11/17 11:45 04/11/17 11:45 04/11/17 11:45 04/11/17 11:45 04/11/17 11:45 Scribe Documentation - Scribe Written by Raminibe:: Boni Greer, 04/11/2017 14:00 acting as scribe for :: Adolfo
[2017-04-11 14:39] LABS: ABSOLUTE LYMPHOCYTES (AUTO) 1.5 10^3/uL (0.5-4.7); ABSOLUTE MONOCYTES (AUTO) 0.3 10^3/uL (0.1-1.4); ABSOLUTE NEUT (AUTO) 3.9 10^3/uL (1.7-8.2); BASOPHILS % (AUTO) 0.7 % (0-2); EOSINOPHILS % (AUTO) 0.2 % (0-6); HEMATOCRIT 39.4 % (36.0-47.0); HEMOGLOBIN 13.3 g/dL (12.0-15.5); LYMPHOCYTES % (AUTO) 25.8 % (13-45); MEAN CORPUSCULAR HEMOGLOBIN 26.7 pg (27.0-33.4); MEAN CORPUSCULAR HGB CONC 33.6 g/dL (32.0-36.0); MEAN CORPUSCULAR VOLUME 79 fl (80-97); MONOCYTES % (AUTO) 5.6 % (3-13); PLATELET COUNT 226 10^3/uL (150-450); RED BLOOD COUNT 4.97 10^6/uL (3.72-5.28); RED CELL DISTRIBUTION WIDTH 14.6 % (11.5-14.0); SEGMENTED NEUTROPHILS % (AUTO) 67.7 % (42-78); TOTAL CELLS COUNTED % (AUTO) 100 %; WHITE BLOOD COUNT 5.8 10^3/uL (4.0-10.5)
[2017-04-11 14:47] LABS: A TYPE INFLUENZA AG NEGATIVE (NEGATIVE); B INFLUENZA AG NEGATIVE (NEGATIVE)
[2017-04-11 14:54] LABS: AMORPHOUS SEDIMENT,URINE TRACE /HPF; APPEARANCE,URINE TURBID; BILIRUBIN,URINE NEGATIVE (NEGATIVE); COLOR,URINE YELLOW; GLUCOSE, URINE NEGATIVE (NEGATIVE); KETONES,URINE TRACE mg/dL (NEGATIVE); LEUKOCYTE ESTERASE,URINE TRACE (NEGATIVE); NITRITE,URINE NEGATIVE (NEGATIVE); PROTEIN,URINE 30 mg/dL (NEGATIVE); URINE SPECIFIC GRAVITY 1.028; UROBILINOGEN,URINE NEGATIVE mg/dL (<2.0)
[2017-04-11 14:57] LABS: ALANINE AMINOTRANSFERASE 23 U/L (9-52); ALBUMIN 5.2 g/dL (3.5-5.0); ALKALINE PHOSPHATASE 75 U/L (38-126); ANION GAP 13 (5-19); ASPARTATE AMINO TRANSFERASE 28 U/L (14-36); BILIRUBIN,DIRECT 0.4 mg/dL (0.0-0.4); BILIRUBIN,TOTAL 0.5 mg/dL (0.2-1.3); BLOOD UREA NITROGEN 17 mg/dL (7-20); CALCIUM 10.6 mg/dL (8.4-10.2); CARBON DIOXIDE 30 mmol/L (22-30); CHLORIDE 103 mmol/L (98-107); GLUCOSE 117 mg/dL (75-110); LIPASE 139.2 U/L (23-300); SODIUM 145.7 mmol/L (137-145); TOTAL PROTEIN 8.5 g/dL (6.3-8.2)
[2017-04-11] MEDS ORDERED: RINGERS SOLUTION,LACTATED 1,000 ML IV ONE (16:17)
--- NOTE | 2017-04-11 16:21 | ER Document Report ---
ED General - General Chief Complaint: Flu Symptoms Stated Complaint: BODY ACHES Time Seen by Provider: 04/11/17 13:44 Mode of Arrival: Ambulatory Information source: Patient Notes: This is a 51-year-old female with a history of gastric bypass (3 years ago in [place]), migraines, cervical disc disease (C5-6 fusion in the past). Patient presents to the ER with nausea, vomiting, watery diarrhea, subjective fevers and chills for the past 4 days. Patient states she has not had fever or chills in the last 2 days. She denies cough. She does have headache with all the symptoms. She denies photophobia or neck stiffness. He does report having some mild back pain. 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 Past medical history: Tachycardia, syncope Diarrhea episodes after the gastric bypass Migraines Degenerative joint disease of the neck Past surgical history: Cholecystectomy Gastric bypass C5-6 fusion TRAVEL OUTSIDE OF THE [place] IN LAST 30 DAYS: No - HPI Onset: Other - 3 days Onset/Duration: Gradual Quality of pain: Cramping Severity: None Pain Level: Denies Associated symptoms: Diarrhea, Nausea, Vomiting. denies: Fever, Shortness of breath Exacerbated by: Denies Relieved by: Denies Similar symptoms previously: Yes Recently seen / treated by doctor: Yes - Related Data Allergies/Adverse Reactions: ranitidine HCl [From Zantac] Allergy (Severe, Verified 02/20/17 08:59) TONGUE/LIP SWELLING sumatriptan [From Imitrex] Allergy (Severe, Verified 02/20/17 08:59) TONGUE SWELLING sumatriptan succinate [From Imitrex] Allergy (Severe, Verified 02/20/17 08:59) TONGUE SWELLING sulfamethoxazole [From Bactrim] Allergy (Intermediate, Verified 02/20/17 08:59) RASH trimethoprim [From Bactrim] Allergy (Intermediate, Verified 02/20/17 08:59) RASH vancomycin Allergy (Intermediate, Verified 02/20/17 08:59) RASH amoxicillin [From Augmentin] Allergy (Verified 04/11/17 11:42) clavulanic acid [From Augmentin] Allergy (Verified 04/11/17 11:42) Tetracyclines Adverse Reaction (Mild, Verified 02/20/17 08:59) RASH Past Medical History - General Information source: Patient - Social History Smoking Status: Never Smoker Cigarette use (# per day): No Chew tobacco use (# tins/day): No Frequency of alcohol use: None Drug Abuse: None Lives with: Family Family History: Reviewed & Not Pertinent Patient has suicidal ideation: No Patient has homicidal ideation: No - Past Medical History Cardiac Medical History: Denies: Hx Coronary Artery Disease, Hx Heart Attack, Hx Hypertension Pulmonary Medical History: Reports: Hx Bronchitis Denies: Hx Asthma, Hx COPD, Hx Pneumonia Neurological Medical History: Denies: Hx Cerebrovascular Accident, Hx Seizures Endocrine Medical History: Reports: Hx Diabetes Mellitus Type 2 Renal/ Medical History: Denies: Hx Peritoneal Dialysis Musculoskeltal Medical History: Reports Hx Arthritis - osteo, Reports Hx Fibromyalgia Psychiatric Medical History: Reports: Hx Bipolar Disorder Past Surgical History: Reports: Hx Abdominal Surgery - gastric bypass, Hx Cholecystectomy, Hx Orthopedic Surgery - neck, back, shoulder - Immunizations Hx Diphtheria, Pertussis, Tetanus Vaccination: Yes Review of Systems - Review of Systems Constitutional: denies: Chills, Fever EENT: No symptoms reported Cardiovascular: No symptoms reported Respiratory: No symptoms reported Gastrointestinal: See HPI Genitourinary: No symptoms reported Female Genitourinary: No symptoms reported Musculoskeletal: No symptoms reported Skin: No symptoms reported Hematologic/Lymphatic: No symptoms reported Neurological/Psychological: No symptoms reported Physical Exam - Vital signs Vitals: Temp Pulse Resp BP Pulse Ox 98.7 F 63 20 123/62 100 04/11/17 11:45 04/11/17 11:45 04/11/17 11:45 04/11/17 11:45 04/11/17 11:45 Notes: Physical exam: GENERAL: 51-year-old female, alert and oriented 3, no acute distress HEAD: Atraumatic, normocephalic. EYES: Pupils equal round and reactive to light, extraocular movements intact, sclera anicteric, conjunctiva are normal. ENT: TMs normal, nares patent, oropharynx clear without exudates. Moist mucous membranes. NECK: Normal range of motion, supple without obvious mass or JVD. LUNGS: Breath sounds clear to auscultation bilaterally and equal. No wheezes rales or rhonchi. HEART: Regular rate and rhythm without murmurs, rubs or gallops. ABDOMEN: Soft, normoactive bowel sounds. No tenderness to palpation. No guarding, no rebound. No masses appreciated. EXTREMITIES: Normal range of motion, no pitting or edema. No clubbing or cyanosis. NEUROLOGICAL: Cranial nerves II through XII grossly intact. Normal speech, moving all extremities. PSYCH: Normal mood, normal affect. SKIN: Warm, Dry, normal turgor, no rashes or lesions noted. Course - Re-evaluation Re-evalutation: 04/12/17 01:12 Patient treated with IV fluids, IV Reglan and Benadryl. She was observed several hours. Her symptoms much improved. She was not able to give a stool sample. She was ambulating around the ER and ready to go. At the time of discharge, I have instructed the patient at the bedside with regards to return precautions and follow-up recommendations. The opportunity for questions was given. The patient has verbalized understanding of these instructions and the need for follow-up. - Vital Signs Vital signs: Temp Pulse Resp BP Pulse Ox 97.7 F 55 L 16 121/57 L 100 04/11/17 20:45 04/11/17 20:45 04/11/17 20:45 04/11/17 20:45 04/11/17 20:45 - Laboratory Result Diagrams: 04/11/17 14:23 04/11/17 14:23 Laboratory results interpreted by me: 04/11/17 04/11/17 04/11/17 13:47 14:23 14:23 MCV 79 L MCH 26.7 L RDW 14.6 H Sodium 145.7 H Glucose 117 H Calcium 10.6 H Total Protein 8.5 H Albumin 5.2 H Urine Protein 30 H Urine Ketones TRACE H Urine Blood MODERATE H Ur Leukocyte Esterase TRACE H Discharge - Discharge Clinical Impression: Vomiting, Dehydration Condition: Stable Disposition: HOME, SELF-CARE Additional Instructions: As we discussed, your labs look relatively good today. Your white count and blood counts were normal. Your kidney function, liver function, pancreas were all normal. I think you are more prone to a viral syndrome given the history of the gastric bypass. I want you to take it easy over the next few days and drink plenty of fluids. Take Zofran for nausea. Follow-up with your primary care doctor for a GI referral. In a copy of today' s labs with you when you see your primary care doctor. Return to the ER for worsening pain or not tolerating fluids.
[2017-04-11] MEDS ORDERED: ACETAMINOPHEN 325 MG TABLET PO ONE (16:45)
[2017-04-11] MEDS ORDERED: METOCLOPRAMIDE HCL INJ/PF 10 MG/2 ML SDV IV ONE (17:26)
[2017-04-11] MEDS ORDERED: DIPHENHYDRAMINE HCL 50 MG/ML VIAL IV ONE (17:26)
[2017-04-11] MEDS ORDERED: ONDANSETRON ODT 4 MG TAB (6 TAB/ER DISP) PO PRN (20:02)
[2017-04-11 20:57] VITALS: BP 121/57
== END 2017-04-11 20:57 | disposition home or self-care (01) ==
LOC: ER 11:41
DX: E86.0 Dehydration (principal); R11.10 Vomiting, unspecified; M79.1 Myalgia; Z98.84 Bariatric surgery status; M50.30 Other cervical disc degeneration, unspecified cervical region
CPT/HCPCS: 99283; 96361; 96374; 96375; 36415; 83690; 84703; 85025; 80053; 81001; 87804; A9270 ×2; J1200; J2765; J2405; J7030; J7120

== ENCOUNTER 2017-07-12 20:29 | Emergency (ER) | payer MEDICARE, MEDICAID ==
--- NOTE | 2017-07-12 21:18 | RADIOLOGY REPORT (SQ) ---
EXAM DESCRIPTION: FOOT RIGHT COMPLETE COMPLETED DATE/TIME: 07/12/2017 8:53 pm REASON FOR STUDY: dropped case of cans on her foot COMPARISON: None. NUMBER OF VIEWS: Three views. TECHNIQUE: AP, lateral and oblique radiographic images acquired of the right foot. LIMITATIONS: None. FINDINGS: MINERALIZATION: Normal. BONES: No acute fracture or dislocation. No worrisome bone lesions. JOINTS: No effusions. SOFT TISSUES: No soft tissue swelling. No foreign body. OTHER: No other significant finding. IMPRESSION: NEGATIVE STUDY OF THE RIGHT FOOT. NO RADIOGRAPHIC EVIDENCE OF ACUTE INJURY. TECHNICAL DOCUMENTATION: JOB ID: [id number] [employer]- All Rights Reserved Reading location - IP/workstation name: [email or web address]
[2017-07-12 22:55] VITALS: BP 116/66
--- NOTE | 2017-07-12 22:55 | ER Document Report ---
HPI - HPI Patient complains to provider of: right foot injury Pain Level: 5 Context: Patient is a 51-year-old female who dropped a can of dog food on her right foot. Patient admits to pain with certain movements of her big toe and with ambulation. Otherwise she states she has been utilizing a walker and is tolerable. She is concerned since broken. Otherwise denies any numbness or tingling distal to the injury. Denies any significant swelling. Patient had recent cervical spine surgery 3 weeks ago. Denies any significant pain Past Medical History - Social History Smoking Status: Smoker,Current Status Unk Family History: Reviewed & Not Pertinent - Past Medical History Cardiac Medical History: Denies: Hx Coronary Artery Disease, Hx Heart Attack, Hx Hypertension Pulmonary Medical History: Reports: Hx Bronchitis Denies: Hx Asthma, Hx COPD, Hx Pneumonia Neurological Medical History: Denies: Hx Cerebrovascular Accident, Hx Seizures Endocrine Medical History: Reports: Hx Diabetes Mellitus Type 2 Renal/ Medical History: Denies: Hx Peritoneal Dialysis Musculoskeltal Medical History: Reports Hx Arthritis - osteo, Reports Hx Fibromyalgia Psychiatric Medical History: Reports: Hx Bipolar Disorder Past Surgical History: Reports: Hx Abdominal Surgery - gastric bypass, Hx Cholecystectomy, Hx Orthopedic Surgery - neck, back, shoulder - Immunizations Hx Diphtheria, Pertussis, Tetanus Vaccination: Yes Vertical Provider Document - CONSTITUTIONAL Agree With Documented VS: Yes Notes: PHYSICAL EXAM GENERAL: Alert, interacts well. HEAD: Normocephalic, atraumatic. NECK: comfort neck brace on. Supple. Trachea midline. EXTREMITIES: Moves all 4 extremities spontaneously. dorsalis pedis pulses 2/4 bilaterally. No cyanosis. Capillary refill less than 2 seconds in bilateral lower extremity digits. No significant edema,deformity. NEUROLOGICAL: Alert and oriented x4. Normal speech. PSYCH: Normal affect, normal mood. SKIN: Warm, dry, normal turgor. Superficial ecchymosis on top of the right foot. - INFECTION CONTROL TRAVEL OUTSIDE OF THE [place] IN LAST 30 DAYS: No Course - Re-evaluation Re-evalutation: 07/12/17 22:54 Patient is a 51-year-old female presents with contusion on the top of her foot. No evidence of a septic joint, gout flare, dislocation, or fracture on exam and imaging. Vitals wnl. At this time, I do not see an indication for labs or further imaging. Patient declining crutches at this time. Will discharge with conservative measures, return precautions, and follow-up recommendations. - Vital Signs Vital signs: Temp Pulse Resp BP Pulse Ox 98.0 F 81 18 123/68 99 07/12/17 21:14 07/12/17 21:14 07/12/17 21:14 07/12/17 21:14 07/12/17 21:14 Discharge - Discharge Clinical Impression: Foot injury Qualifiers: Encounter type: initial encounter Laterality: right Qualified Code(s): S99.921A - Unspecified injury of right foot, initial encounter Condition: Good Disposition: HOME, SELF-CARE Instructions: Contusion ([facility]), Ice & Elevation ([facility]), Acetaminophen
== END 2017-07-12 22:50 | disposition home or self-care (01) ==
LOC: ER 20:29
DX: S99.921A Unspecified injury of right foot, initial encounter (principal); M79.671 Pain in right foot; W22.8XXA Striking against or struck by other objects, initial encounter; F17.200 Nicotine dependence, unspecified, uncomplicated; E11.9 Type 2 diabetes mellitus without complications
CPT/HCPCS: 99283

== ENCOUNTER 2017-10-04 08:34 | Emergency (ER) | payer MEDICARE, MEDICAID ==
[2017-10-04 08:43] VITALS: BP 116/58
--- NOTE | 2017-10-04 09:51 | ER Document Report ---
ED Neck/Back Problem - General Chief Complaint: Back Pain Stated Complaint: BACK PAIN Time Seen by Provider: 10/04/17 09:16 Notes: Patient is a 51-year-old female with history of lumbar fusion complains of acute low back pain 4 days. Patient reports that she was stepping on a 2 foot ladder and was crossing over a fence when she felt a crunch sensation in her low back as she lifted her leg over the fence. Patient says she felt acute pain with radiation into her right buttock and posterior thigh down to her knee. There is no paresthesia. No loss of bladder or bowel control. She has had no fever. TRAVEL OUTSIDE OF THE [place] IN LAST 30 DAYS: No - HPI Where: Home Onset: Sudden Timing: Constant Quality of pain: Sharp Recent injury: Yes Associated symptoms: Radiation to leg - Right buttock Exacerbated by: Nothing Relieved by: Nothing - Patient has pain medication and muscle relaxant at home which she has been taking with no relief Similar symptoms previously: Yes - Related Data Allergies/Adverse Reactions: ranitidine HCl [From Zantac] Allergy (Severe, Verified 10/04/17 08:36) TONGUE/LIP SWELLING sumatriptan [From Imitrex] Allergy (Severe, Verified 10/04/17 08:36) TONGUE SWELLING sumatriptan succinate [From Imitrex] Allergy (Severe, Verified 10/04/17 08:36) TONGUE SWELLING sulfamethoxazole [From Bactrim] Allergy (Intermediate, Verified 10/04/17 08:36) RASH trimethoprim [From Bactrim] Allergy (Intermediate, Verified 10/04/17 08:36) RASH vancomycin Allergy (Intermediate, Verified 10/04/17 08:36) RASH amoxicillin [From Augmentin] Allergy (Verified 10/04/17 08:36) clavulanic acid [From Augmentin] Allergy (Verified 10/04/17 08:36) Tetracyclines Adverse Reaction (Mild, Verified 10/04/17 08:36) RASH Past Medical History - General Information source: Patient - Social History Smoking Status: Unknown if Ever Smoked Chew tobacco use (# tins/day): No Frequency of alcohol use: None Drug Abuse: None Lives with: Family Family History: Reviewed & Not Pertinent Patient has suicidal ideation: No Patient has homicidal ideation: No - Past Medical History Cardiac Medical History: Denies: Hx Coronary Artery Disease, Hx Heart Attack, Hx Hypertension Pulmonary Medical History: Reports: Hx Bronchitis Denies: Hx Asthma, Hx COPD, Hx Pneumonia Neurological Medical History: Denies: Hx Cerebrovascular Accident, Hx Seizures Endocrine Medical History: Reports: Hx Diabetes Mellitus Type 2 Renal/ Medical History: Denies: Hx Peritoneal Dialysis Musculoskeletal Medical History: Reports Hx Arthritis - osteo, Reports Hx Fibromyalgia Psychiatric Medical History: Reports: Hx Bipolar Disorder Past Surgical History: Reports: Hx Abdominal Surgery - gastric bypass [place], Hx Cholecystectomy, Hx Orthopedic Surgery - neck, back, shoulder ELBOW LEFT - Immunizations Hx Diphtheria, Pertussis, Tetanus Vaccination: Yes Review of Systems - Review of Systems Constitutional: No symptoms reported EENT: No symptoms reported Cardiovascular: No symptoms reported Respiratory: No symptoms reported Gastrointestinal: No symptoms reported Genitourinary: No symptoms reported Female Genitourinary: No symptoms reported Musculoskeletal: No symptoms reported Skin: No symptoms reported Hematologic/Lymphatic: No symptoms reported Neurological/Psychological: No symptoms reported Physical Exam - Vital signs Vitals: Temp Pulse Resp BP Pulse Ox 98.0 F 69 18 116/58 L 100 10/04/17 08:40 10/04/17 08:40 10/04/17 08:40 10/04/17 08:40 10/04/17 08:40 Interpretation: Normal - General General appearance: Appears well, Alert - HEENT Head: Normocephalic, Atraumatic Eyes: Normal Pupils: PERRL - Respiratory Respiratory status: No respiratory distress Chest status: Nontender Breath sounds: Normal Chest palpation: Normal - Cardiovascular Rhythm: Regular Heart sounds: Normal auscultation Murmur: No - Abdominal Inspection: Normal Distension: No distension Bowel sounds: Normal Tenderness: Nontender Organomegaly: No organomegaly - Back Back: Normal, Tender - Positive lumbar spinal and right lumbar paraspinal tenderness. Mild right SI tenderness. Negative straight leg test. Negative foot drop - Extremities General upper extremity: Normal inspection, Nontender, Normal color, Normal ROM , Normal temperature General lower extremity: Normal inspection, Nontender, Normal color, Normal ROM , Normal temperature, Normal weight bearing. No: Kath's sign - Neurological Neuro grossly intact: Yes Cognition: Normal Orientation: AAOx4 [place] Coma Scale Eye Opening: Spontaneous [place] Coma Scale Verbal: Oriented [place] Coma Scale Motor: Obeys Commands [place] Coma Scale Total: 15 Speech: Normal Motor strength normal: LUE, RUE, LLE, RLE Sensory: Normal - Psychological Associated symptoms: Normal affect, Normal mood - Skin Skin Temperature: Warm Skin Moisture: Dry Skin Color: Normal Course - Re-evaluation Re-evalutation: 10/04/17 09:48 Patient presents with acute low back pain without signs of spinal cord compression, cauda equina, infection, aneurysm or other serious etiology. Patient is neurologically intact, independently and steadily ambulatory without paresthesia or neurologic deficits. Lumbar x-ray is negative. No further testing is indicated at this time. Home care, follow-up with primary care, ED return precautions were discussed and patient agrees with plan. Patient is stable for discharge. Patient has pain medication and muscle relaxants at home. Patient is under care of pain management 10/04/17 10:15 Lumbar x-ray showing postsurgical degenerative changes in the lumbar spine. Hardware is intact. These results were reviewed with patient 10/04/17 10:23 - Vital Signs Vital signs: Temp Pulse Resp BP Pulse Ox 98.0 F 69 18 116/58 L 100 10/04/17 08:40 10/04/17 08:40 10/04/17 08:40 10/04/17 08:40 10/04/17 08:40 Discharge - Discharge Clinical Impression: Low back pain Qualifiers: Chronicity: acute Back pain laterality: midline Sciatica presence: with sciatica Sciatica laterality: sciatica of right side Qualified Code(s): M54.41 - Lumbago with sciatica, right side Condition: Stable Disposition: HOME, SELF-CARE Instructions: Ice Packs ([facility]), Low Back Pain ([facility]), Steroid Medication Injection, Toradol Injection ([facility]) Additional Instructions: Your x-rays today were negative for any acute fracture. Your hardware is intact Take your pain medications and muscle relaxant as prescribed Apply ice to the sore area Follow-up with your primary care if pain persists for more than 10 days. You may require an MRI to evaluate for disc injury or other soft tissue injury
[2017-10-04] MEDS ORDERED: KETOROLAC TROMETHAMINE 60 MG/2 ML SDV IM ONE (09:55)
[2017-10-04] MEDS ORDERED: DEXAMETHASONE SOD PHOS INJ 10 MG/1 ML VIAL IV ONE (09:56)
--- NOTE | 2017-10-04 10:02 | RADIOLOGY REPORT (SQ) ---
EXAM DESCRIPTION: L SPINE WHOLE COMPLETED DATE/TIME: 10/04/2017 9:36 am REASON FOR STUDY: low back pain COMPARISON: None. NUMBER OF VIEWS: Five views including obliques. TECHNIQUE: AP, lateral, oblique, and sacral radiographic images acquired of the lumbar spine. LIMITATIONS: None. FINDINGS: MINERALIZATION: Normal. SEGMENTATION: Normal. No transitional anatomy. ALIGNMENT: Normal. VERTEBRAE: Maintained height. No fracture or worrisome bone lesion. DISCS: There is some decrease in the L3-L4 disc space heights with associated osteophytic lipping. D isc spacer is identified at the L4-L5 level POSTERIOR ELEMENTS: Pedicles and facets are intact. No pars defect or posterior arch defects. HARDWARE: Anterior and posterior orthopedic hardware is identified at the L4-L5 level. PARASPINAL SOFT TISSUES: Normal. PELVIS: Intact as visualized. No fractures or worrisome bone lesions. SI joints intact. OTHER: No other significant finding. IMPRESSION: Degenerative postsurgical changes as noted above. Other findings as noted above TECHNICAL DOCUMENTATION: JOB ID: [id number] [email or web address]- All Rights Reserved Reading location - IP/workstation name: [email or web address]
[2017-10-04] MEDS ORDERED: DEXAMETHASONE SOD PHOS INJ 10 MG/1 ML VIAL IM ONE (10:06)
== END 2017-10-04 10:38 | disposition home or self-care (01) ==
LOC: ER 08:34
DX: M47.9 Spondylosis, unspecified (principal); M54.41 Lumbago with sciatica, right side; E11.9 Type 2 diabetes mellitus without complications; Z98.84 Bariatric surgery status; Z98.1 Arthrodesis status; Z88.8 Allergy status to other drugs, medicaments and biological substances; Z88.6 Allergy status to analgesic agent; Z88.0 Allergy status to penicillin
CPT/HCPCS: 99283; 96372; 72110; J1885; J1100